=== PATIENT | female | born 1975 | race Caucasian/White ===

== ENCOUNTER 2022-05-22 06:41 | Day surgery (SDC) | payer OTHER ==
[~2022-05-22 06:41] MED LIST: Lactated Ringers 1,000 ML IV SCH; Lidocaine 1%/Sod Bicarbonate in NS 8.4% 1 ML Syringe IDERM PRN; Sodium Chloride 0.9% 10 ML Syringe FLUSH PRN; Sodium Chloride 0.9% 10 ML Syringe FLUSH SCH
[2022-05-22] MEDS ORDERED: Dexamethasone 4 MG/ML 5 ML MDV ONE (06:48)
[2022-05-22] MEDS ORDERED: Lactated Ringers 1,000 ML ONE ×2 (06:48→07:45)
[2022-05-22] MEDS ORDERED: Propofol 200 MG/20 ML SDV ONE (06:48)
[2022-05-22] MEDS ORDERED: Ondansetron 4 MG/2 ML SDV ONE (06:48)
[2022-05-22] MEDS ORDERED: Lidocaine 1% 4 ML ONE (06:48)
[2022-05-22] MEDS ORDERED: Rocuronium 50 MG/5 ML Vial ONE (06:48)
[2022-05-22] MEDS ORDERED: ceFAZolin 2 GM Vial ONE (06:48)
[2022-05-22] MEDS ORDERED: Ketorolac 30 MG/ML SDV ONE (06:48)
[2022-05-22] MEDS ORDERED: Ketamine 500 mg/10 ML MDV ONE (06:49)
[2022-05-22] MEDS ORDERED: fentaNYL 100 MCG/2 ML SDV ONE (06:49)
[2022-05-22] MEDS ORDERED: Midazolam 1 MG/ML 2 ML SDV ONE (06:49)
[2022-05-22] MEDS ORDERED: Scopolamine 1.5 MG Transdermal Patch TRDERM SCH (07:00)
[2022-05-22] MEDS ORDERED: Bupivacaine 0.5% 30 ML SDV ONE (07:23)
[2022-05-22] MEDS ORDERED: Lidocaine 1% with EPINEPHrine 1:100,000 10 ML MDV ONE (07:23)
[2022-05-22] MEDS ORDERED: HYDROmorphone 0.5 MG/0.5 ML Syringe IVPUSH PRN (07:27)
[2022-05-22] MEDS ORDERED: ePHEDrine 50 MG/ML SDV IVPUSH PRN (07:27)
[2022-05-22] MEDS ORDERED: Metoclopramide 10 MG/2 ML SDV IV PRN (07:27)
[2022-05-22] MEDS ORDERED: Ondansetron 4 MG/2 ML SDV IVPUSH PRN (07:27)
[2022-05-22] MEDS ORDERED: fentaNYL 100 MCG/2 ML SDV IVPUSH PRN (07:27)
[2022-05-22] MEDS ORDERED: diphenhydrAMINE 50 MG/ML SDV IVPUSH PRN (07:27)
[2022-05-22] MEDS ORDERED: Phenylephrine HCl In 0.9% NaCl 1 MG/10 ML Vial ONE (07:46)
[2022-05-22] MEDS ORDERED: Neostigmine Methylsulfate 10 MG/10 ML MDV ONE (08:42)
[2022-05-22] MEDS ORDERED: HYDROmorphone 0.5 MG/0.5 ML Syringe ONE (09:05)
[2022-05-22] MEDS ORDERED: Midazolam 1 MG/ML 2 ML SDV IVPUSH PRN (10:33)
[2022-05-22] MEDS ORDERED: Acetaminophen/oxyCODONE 325-5 MG Tab PO SCH (12:15)
[2022-05-22 14:57] VITALS: BP 107/67; PULSE 78
== END 2022-05-22 13:13 | disposition home or self-care (01) ==
LOC: JD.SDS 06:41
PROVIDERS: ATTEND Obstetrics & Gynecology
DX: N80.03 Adenomyosis of the uterus (principal); D25.9 Leiomyoma of uterus, unspecified; N87.9 Dysplasia of cervix uteri, unspecified; N83.8 Other noninflammatory disorders of ovary, fallopian tube and broad ligament; F41.9 Anxiety disorder, unspecified; F32.A Depression, unspecified; K21.9 Gastro-esophageal reflux disease without esophagitis; Z98.890 Other specified postprocedural states; Z90.49 Acquired absence of other specified parts of digestive tract; Z87.891 Personal history of nicotine dependence; Z79.899 Other long term (current) drug therapy; Z91.048 Other nonmedicinal substance allergy status
CPT/HCPCS: 36415; 58552; 80048; 81025; 85025; 86850; 86900; 86901; A9270; J0690; J1100; J1170; J1200; J1885; J2250; J2405; J2704; J2710; J3010; J3490; J7120; 00944